=== PATIENT | female | born 1960 | race Two or more races ===

== ENCOUNTER 2021-08-24 13:34 | Emergency (ER) | payer OTHER ==
[~2021-08-24] VITALS: Ht 162.6 cm; Wt 81.6 kg
[2021-08-24] MEDS ORDERED: NORFLEX100MG PO (13:51)
[2021-08-24] MEDS ORDERED: BISOPROLOL FUMAR5 MG PO (13:51)
[2021-08-24] MEDS ORDERED: LANOXIN250 MCG PO (13:52)
[2021-08-24] MEDS ORDERED: ECOTRIN81 MG PO (13:52)
== END 2021-08-24 14:32 | disposition home or self-care (01) ==
LOC: ER 13:34
DX: M43.6 Torticollis (principal); I10 Essential (primary) hypertension